=== PATIENT | female | born 2000 | race American Indian/Alaskan Native ===

== ENCOUNTER 2019-01-31 17:04 | Emergency (ER) | payer SELFPAY ==
[2019-01-31 17:14] VITALS: BP 119/62
--- NOTE | 2019-01-31 17:30 | Emergency Department Report ---
Blank Doc - Documentation Documentation: Pt with sore throat and chills. She said she had strep in the past and knows she has sttrep now Mouth: positive oraharyngeal exudate and erythema A/P Sore Throat Strep test
[2019-01-31] MEDS ORDERED: BICILLIN L-A IM ONE (18:33)
--- NOTE | 2019-01-31 18:35 | Emergency Department Report ---
Minor Respiratory (Peds) - HPI Chief Complaint: Sore Throat Stated Complaint: SORE THROAT Time Seen by Provider: 01/31/19 18:32 Duration: 2 Days Pain Location: Throat Pain Severity: Mild Symptoms: Yes Sore Throat, Yes Able to Tolerate Fluids, Yes Good Urine Output, Yes Active and Alert, No Fever, No Rhinorrhea, No Ear Pain, No Cough, No Shortness of Breath, No Sick Contacts Other History: 18 yo with sore throat. no fever at present. chills at home. requesting shot. ED Review of Systems ROS: Stated complaint: SORE THROAT Other details as noted in HPI Comment: All other systems reviewed and negative Constitutional: denies: chills Eyes: denies: as per HPI ENT: as per HPI, throat pain. denies: ear pain Respiratory: denies: cough Cardiovascular: denies: chest pain Endocrine: denies: excessive sweating Gastrointestinal: denies: nausea Genitourinary: denies: urgency Musculoskeletal: denies: back pain Skin: denies: as per HPI Neurological: denies: headache Psychiatric: denies: anxiety Hematological/Lymphatic: denies: easy bleeding Pediatric Past Medical History - Chronic Health Problems Hx Asthma: No Hx Diabetes: No Hx HIV: No Hx Renal Disease: No Hx Sickle Cell Disease: No Hx Seizures: No Peds Minor Resp. exam - Exam General: Vital signs noted. No distress. Alert and acting appropriately. Peds HEENT: Pharyngeal Erythema: Yes, Pharyngeal Exudates: Yes, Moist Mucous Membranes: Yes, Rhinorrhea: No, Conjuctival Injection: No Ear: Neither TM Bulge, Neither TM Erythema, Neither EAC Discharge Peds neck exam: Adenopathy: No, Supple: Yes Peds Lung exam: Good Air Exchange: Yes, Wheezes: No, Stridor: No, Cough: No, Nasal Flaring: No, Retractions: No, Use of Accessory Muscles: No Heart: Yes Regular, No Murmur Peds abdomen: Abdominal Tenderness: No, Peritoneal Signs: No, Normal Bowel Sounds: Yes, Distention: No Peds Skin Exam: Rash: No, Eczema: No Neurologic: Alert and oriented, no deficits. Musculoskeletal: Unremarkable. ED Course Vital Signs 01/31/19 17:12 Temperature 99 F Pulse Rate 104 H Respiratory 16 Rate Blood Pressure 119/62 O2 Sat by Pulse 98 Oximetry ED Medical Decision Making - Medical Decision Making abc intact taking po swallowing without difficulty medicated with IM bicillin per pt request- she states thats all that works Vital Signs 01/31/19 17:12 Temperature 99 F Pulse Rate 104 H Respiratory 16 Rate Blood Pressure 119/62 O2 Sat by Pulse 98 Oximetry Lab Results 01/31/19 Range/Units 17:20 Group A Strep Rapid Negative (Negative) Critical care attestation.: If time is entered above; I have spent that time in minutes in the direct care of this critically ill patient, excluding procedure time. ED Disposition Clinical Impression: Exudative pharyngitis Disposition: DC-01 TO HOME OR SELFCARE Is pt being admited?: No Does the pt Need Aspirin: No Condition: Stable Instructions: Pharyngitis (ED) Additional Instructions: HYDRATE WELL WITH WATER EAT YOGURT DAILY FOLLOW UP PCP IF PERSISTS ACTIVITY TOLERATED DIET TOLERATED MED ORDERED Referrals: [facility] [Outside] - 3-5 Days Time of Disposition: 18:32
== END 2019-01-31 19:35 | disposition home or self-care (01) ==
LOC: ED 17:04
DX: J02.9 Acute pharyngitis, unspecified (principal)
CPT/HCPCS: 87116; 87430; 96372; 99283; J0561